=== PATIENT | male | born 1995 | race Caucasian/White ===

== ENCOUNTER 2017-06-16 08:11 | Emergency (ER) | payer MEDICAID ==
[~2017-06-16] VITALS: Ht 182.9 cm; Wt 91.6 kg
[2017-06-16 09:12] LABS: CARBON DIOXIDE 25.5 mmol/L (21-32); CHLORIDE SERUM 102 mmol/L (98-107); GFR1 > 60 mL/min; GLUCOSE SERUM 100 mg/dL (74-106); POTASSIUM SERUM 3.9 mmol/L (3.5-5.1); SODIUM SERUM 139 mmol/L (136-145)
[2017-06-16 09:14] LABS: AMPHETAMINE QUAL UR NONE DETECTED (NEG <=1000)
[2017-06-16 11:39] VITALS: BP 158/91
== END 2017-06-16 11:40 | disposition home or self-care (01) ==
LOC: ED 08:11
PROVIDERS: Emergency Medicine
DX: R07.89 Other chest pain (principal)
CPT/HCPCS: 36415; Q0092

== ENCOUNTER 2020-01-22 03:27 | Emergency (ER) | payer MEDICAID ==
[~2020-01-22] VITALS: Ht 182.9 cm; Wt 99.3 kg
[2020-01-22 03:37] VITALS: Ht 182.9 cm; Wt 99.3 kg
[2020-01-22 05:17] LABS: BASOPHIL % 0.3 % (0-2); PLATELET COUNT 269 x10^3mcL (130-400); RED CELL DISTRIBUTION WIDTH 12.9 % (11.5-14.5)
[2020-01-22 05:27] LABS: CARBON DIOXIDE 26.7 mmol/L (21-32); CHLORIDE SERUM 102 mmol/L (98-107); GFR1 > 60 mL/min; GLUCOSE SERUM 94 mg/dL (74-106); POTASSIUM SERUM 3.7 mmol/L (3.5-5.1); SODIUM SERUM 138 mmol/L (136-145)
[2020-01-22 05:31] LABS: ALBUMIN 4.3 g/dL (3.4-5.0); ALKALINE PHOSPHATASE 84 U/L (46-116); ALT/SGPT 53 U/L (16-63); AST/SGOT 24 U/L (15-37); BILIRUBIN TOTAL 0.46 mg/dL (0.20-1.00); TOTAL PROTEIN, SERUM 7.5 g/dL (6.4-8.2)
[2020-01-22 05:42] LABS: AMPHETAMINE QUAL UR NONE DETECTED (See below)
[2020-01-22 07:40] VITALS: BP 112/59
== END 2020-01-22 07:40 | disposition home or self-care (01) ==
LOC: ED 03:27
PROVIDERS: Emergency Medicine
DX: R07.89 Other chest pain (principal); R42 Dizziness and giddiness; M79.662 Pain in left lower leg
CPT/HCPCS: Q0092